=== PATIENT | male | born 1955 | race Caucasian/White ===

== ENCOUNTER 2020-11-06 10:19 | Day surgery (SDC) | payer BC ==
[~2020-11-06 10:19] MED LIST: Lactated Ringers 1,000 ML IV SCH; Lidocaine 1%/Sod Bicarbonate in NS 8.4% 1 ML Syringe IDERM PRN; Sodium Chloride 0.9% 10 ML Syringe FLUSH PRN
[2020-11-06] MEDS ORDERED: fentaNYL 100 MCG/2 ML SDV ONE ×2 (11:21→12:34)
[2020-11-06] MEDS ORDERED: Lidocaine 1% 4 ML ONE (11:21)
[2020-11-06] MEDS ORDERED: Propofol 200 MG/20 ML SDV ONE ×3 (11:21→12:49)
--- NOTE | 2020-11-06 11:41 | PCM.PREANE ---
Preanesthetic Assessment - Procedure Proposed Procedure: screening colonoscopy - Anesthesia/Transfusion/Family Hx Anesthesia History: Prior Anesthesia Without Reaction Family History of Anesthesia Reaction: No - Review of Systems General: No Symptoms Pulmonary: Cough (chronic smokers cough, 1 ppd for 45 years. Denies SOB. Last cigarette was yesterday. ) Cardiovascular: Other (Hypertension, Hyperlipidemia) Gastrointestinal: No Symptoms Neurological: No Symptoms Other: Reports: None - Physical Assessment NPO Status Date: 11/06/20 NPO Status Time: 04:00 Weight: 84 kg ASA Class: 3 Mental Status: Alert & Oriented x3 Airway Class: Mallampati = 1 Dentition: Reports: [place](s), [place] Thyro-Mental Finger Breadths: 3 Mouth Opening Finger Breadths: 3 ROM/Head Extension: Full Lungs: Clear to Auscultation, Normal Respiratory Effort Cardiovascular: Regular Rate, Regular Rhythm - Lab Values: Laboratory Last Values SARS-CoV-2 RNA ([facility]) Negative (NEGATIVE) 11/06/20 10:17 - Imaging/EKG Impressions: EKG, SR with anterior fascicular block - Allergies Allergies/Adverse Reactions: Allergies Allergy/AdvReac Type Severity Reaction Status Date / Time No Known Allergies Allergy Verified 11/05/20 11:50 - Acknowledgements Anesthesia Type Planned: MAC Pt an Appropriate Candidate for the Planned Anesthesia: Yes Alternatives and Risks of Anesthesia Discussed w Pt/Guardian: Yes Pt/Guardian Understands and Agrees with Anesthesia Plan: Yes PreAnesthesia Questionnaire HEENT History: Reports: None Cardiovascular History: Reports: High Cholesterol, Hypertension Respiratory History: Reports: Other (See Below) Other Respiratory History: bronchitis, cough Gastrointestinal History: Reports: Other (See Below) Other Gastrointestinal History: inguinal hernia Genitourinary History: Reports: Other (See Below) Other Genitourinary History: erectile dysfunction MARINE WELDER History: Reports: None Musculoskeletal History: Reports: Arthritis Psychiatric History: Reports: None Endocrine/Metabolic History: Reports: None Hematologic History: Reports: None Immunologic History: Reports: None Oncologic (Cancer) History: Reports: None Dermatologic History: Reports: None - Past Surgical History Head Surgeries/Procedures: Reports: None HEENT Surgical History: Reports: None Cardiovascular Surgical History: Reports: None Respiratory Surgical History: Reports: None GI Surgical History: Reports: None Female Surgical History: Reports: None Male Surgical History: Reports: None Endocrine Surgical History: Reports: None Neurological Surgical History: Reports: Other (See Below) Other Neurological Surgeries/Procedures: neck and back surgery Musculoskeletal Surgical History: Reports: None Oncologic Surgical History: Reports: None Dermatological Surgical History: Reports: None - SUBSTANCE USE Tobacco Use Status *Q: Current Every Day Tobacco User Recreational Drug Use History: No - HOME MEDS Home Medications: Home Meds . [No Known Home Meds] 11/05/20 [History] - CURRENT (IN HOUSE) MEDS Current Meds: Current Medications Lactated Ringer's (Ringers, Lactated) 1,000 mls @ 125 mls/hr IV ASDIRECTED [place] Stop: 11/06/20 23:00 Lidocaine/Sodium Bicarbonate (Lidocaine 1%/Sod Bicarbonate In Ns 8.4% 1 Ml Syringe) 0.25 ml IDERM ONETIME PRN PRN Reason: Prior to IV Start Stop: 11/06/20 18:00 Sodium Chloride (Sodium Chloride 0.9% 10 Ml Syringe) 10 ml FLUSH ASDIRECTED PRN PRN Reason: Keep Vein Open Stop: 11/06/20 18:00 Discontinued Medications Fentanyl (Fentanyl 100 Mcg/2 Ml Sdv) Confirm Administered Dose 100 mcg .ROUTE .STK-MED ONE Stop: 11/06/20 11:22 Lidocaine HCl (Xylocaine-Mpf 1%) Confirm Administered Dose 4 mls @ as directed .ROUTE .STK-MED ONE Stop: 11/06/20 11:22 Propofol (Propofol 200 Mg/20 Ml Sdv) Confirm Administered Dose 400 mg .ROUTE .STK-MED ONE Stop: 11/06/20 11:22
[2020-11-06] MEDS ORDERED: Lactated Ringers 1,000 ML ONE (12:36)
[2020-11-06] MEDS ORDERED: Dexamethasone 4 MG/ML SDV ONE (12:54)
--- NOTE | 2020-11-06 13:29 | PCM.PRNOTE ---
- Free Text/Narrative Note: Date: 11/06/2020 Procedure: screening colonoscopy Endoscopist: Sang Marino MD Findings: proximal colon was not well prepped. Patient used SuPrep. Starting at 60 cm from the verge and working distally, innumerable polyps were identified, most of which appeared consistent with benign hyperplastic polyps. Several of the more prominent lesions were removed using hot snare polypectomy technique. The sigmoid colon was very difficult to traverse, with marked looping of the scope and what seemed like volvulus from the endoscopic perspective. Detailed Report: The patient was taken to the endoscopy suite and placed in left lateral decubitus position. Timeout was performed and monitored anesthesia care was initiated. On inspection of the anus, there was a small external hemorrhoid. Digital rectal exam was unremarkable. The colonoscope was inserted and advanced all the way to the cecum. This was challenging, especially at the level of the sigmoid. The sigmoid was redundant, with multiple sharp turns, and an area that was difficult to insufflate and seemed almost as if this portion of the colon was partially volvulized. Eventually the cecum was reached. The ileocecal valve was well visualized. There was lots of dark fluid and sticky residue adherent to the mucosa in the cecum and ascending colon. It was difficult to visualize the mucosa well, and it was difficult to maintain the scope in this position. As the scope was withdrawn to the descending colon, at approximately 60 cm from the anal verge, a pedunculated polyp was identified. This was removed using hot snare polypectomy technique. Between this site and the anal verge, innumerable polyps were encountered most of these were small flat benign- appearing lesions grossly consistent with hyperplastic polyps. However, a few other pedunculated polyps were identified and removed, all using hot snare polypectomy technique. The distal most of these lesions was almost at the anal canal. Given the fact that prep was suboptimal, visualization was difficult, and several polyps were identified I think that this patient should probably have a repeat scope in 1 year, but we will wait for final pathology before determining the plan.
--- NOTE | 2020-11-06 13:36 | PCM48HPAN ---
Post Anesthesia Note - EVALUATION WITHIN 48HRS OF ANESTHETIC Vital Signs in Normal Range: Yes Patient Participated in Evaluation: Yes Respiratory Function Stable: Yes Airway Patent: Yes Cardiovascular Function Stable: Yes Hydration Status Stable: Yes Pain Control Satisfactory: Yes Nausea and Vomiting Control Satisfactory: Yes Mental Status Recovered: Yes Vital Signs: Last Vital Signs Temp 36.6 C 11/06/20 10:16 Pulse 65 11/06/20 10:16 Resp 16 11/06/20 10:16 BP 132/74 11/06/20 10:16 Pulse Ox 95 11/06/20 10:16 1325 104/76 63 24 94% 97 F
== END 2020-11-06 14:35 | disposition home or self-care (01) ==
LOC: JD.SDS 10:19
PROVIDERS: ATTEND Surgery
DX: Z12.11 Encounter for screening for malignant neoplasm of colon (principal); D12.4 Benign neoplasm of descending colon; D12.5 Benign neoplasm of sigmoid colon; D12.8 Benign neoplasm of rectum; D12.9 Benign neoplasm of anus and anal canal; K63.89 Other specified diseases of intestine; K64.4 Residual hemorrhoidal skin tags; K40.90 Unilateral inguinal hernia, without obstruction or gangrene, not specified as recurrent; E78.5 Hyperlipidemia, unspecified; I10 Essential (primary) hypertension; F17.210 Nicotine dependence, cigarettes, uncomplicated; Z01.812 Encounter for preprocedural laboratory examination; Z20.822 Contact with and (suspected) exposure to COVID-19; Z80.0 Family history of malignant neoplasm of digestive organs
CPT/HCPCS: 45385; 87635; J1100; J2704; J3010; J7120; 00812; U0002